=== PATIENT | male | born 1940 | race Caucasian/White ===

== ENCOUNTER 2020-06-25 19:12 | Inpatient (IN) | payer MEDICARE, BC ==
[2020-06-25] MEDS ORDERED: SODIUM CHLORIDE 0.9% 500 ML 500 ML IV STA (19:27)
--- NOTE | 2020-06-25 19:33 | ED ---
General Adult HPI - General Chief complaint: Neuro Symptoms/Deficit Stated complaint: Possible stroke Time Seen by Provider: 06/25/20 19:12 Source: patient, EMS, RN notes reviewed, old records reviewed Mode of arrival: EMS Limitations: no limitations - History of Present Illness Initial comments: This is an 79-year-old male who presents emergency Department stating that about 8:00 last night he started noticing he has some facial droop on the left and some slurred speech. Patient states that has not resolved at this time. Patient denies any weakness or numbness in the arms or legs. Patient denies any headache patient denies any coordination problems. Patient denies any recent fever chills or cough. Patient denies any similar history. Patient states his only medical problem is high blood pressure. Patient denies any chest pain difficulty breathing shortness of breath patient denies any abdominal pain patient denies nausea vomiting diarrhea. - Related Data Home Medications Medication Instructions Recorded Confirmed ALPRAZolam [Xanax] 0.25 mg PO BID PRN 06/25/20 06/25/20 Tamsulosin HCl [Flomax] 0.4 mg PO DAILY 06/25/20 06/25/20 atenoloL [Atenolol] 25 mg PO DAILY 06/25/20 06/25/20 Allergies Allergy/AdvReac Type Severity Reaction Status Date / Time No Known Allergies Allergy Verified 06/25/20 20:44 Review of Systems ROS Statement: Those systems with pertinent positive or pertinent negative responses have been documented in the HPI. ROS Other: All systems not noted in ROS Statement are negative. Past Medical History Past Medical History: Atrial Fibrillation, Hypertension History of Any Multi-Drug Resistant Organisms: None Reported Past Surgical History: Orthopedic Surgery Past Psychological History: No Psychological Hx Reported Smoking Status: Never smoker Past Alcohol Use History: Daily Past Drug Use History: None Reported General Exam - General Exam Comments Initial Comments: GENERAL: Patient is well-developed and well-nourished. Patient is nontoxic and well- hydrated and is in no acute distress. ENT: Neck is soft and supple. No significant lymphadenopathy is noted. Oropharynx is clear. Moist mucous membranes. Neck has full range of motion without eliciting any pain. EYES: The sclera were anicteric and conjunctiva were pink and moist. Extraocular movements were intact and pupils were equal round and reactive to light. Eyelids were unremarkable. PULMONARY: Unlabored respirations. Good breath sounds bilaterally. No audible rales rhonchi or wheezing was noted. CARDIOVASCULAR: There is a regular rate and rhythm without any murmurs gallops or rubs. ABDOMEN: Soft and nontender with normal bowel sounds. SKIN: Skin is clear with no lesions or rashes and otherwise unremarkable. NEUROLOGIC: Patient is alert and oriented x3. Patient has some facial droop on the left side however his forehead is not involved. Patient's motor and sensory are all 4 extremities are equal and has full strength. Cerebellar testing finger to nose is normal bilaterally. MUSCULOSKELETAL: Normal extremities with adequate strength and full range of motion. LYMPHATICS: No significant lymphadenopathy is noted PSYCHIATRIC: Normal psychiatric evaluation. Limitations: no limitations Course Vital Signs 06/25/20 06/25/20 06/25/20 19:15 19:30 19:45 Temperature 99.1 F Pulse Rate 99 85 88 Respiratory 18 18 18 Rate Blood Pressure 155/104 145/88 155/92 O2 Sat by Pulse 99 99 98 Oximetry 06/25/20 20:23 Temperature Pulse Rate 90 Respiratory 17 Rate Blood Pressure 148/93 O2 Sat by Pulse 99 Oximetry Medical Decision Making - Medical Decision Making EKG shows atrial fibrillation at 93 bpm QRS is 74 Q-T intervals 354 QTC is 440. EKG shows no ST segment elevation or depression. Patient's CT shows an area of infarct with no hemorrhage. It is in the distribution of the right middle cerebral artery. CTA shows a a significant proximal right ICA complex plaque stenosis I spoke with the neuro interventional is Dr. Cardenas and he wanted medical management I gave the patient Lipitor and aspirin and I consult to neurology for tomorrow. I spoke with the [facility] agreed to admit the patient to the patient wrote admitting orders. - Lab Data Result diagrams: 06/25/20 19:35 06/25/20 20:31 Lab Results 06/25/20 06/25/20 06/25/20 Range/Units 19:35 19:35 19:35 WBC 4.6 (3.8-10.6) k/uL RBC 4.63 (4.30-5.90) m/uL Hgb 14.3 (13.0-17.5) gm/dL Hct 43.9 (39.0-53.0) % MCV 94.7 (80.0-100.0) fL MCH 30.8 (25.0-35.0) pg MCHC 32.6 (31.0-37.0) g/dL RDW 13.5 (11.5-15.5) % Plt Count 67 L (150-450) k/uL MPV 9.6 Neutrophils % 69 % Lymphocytes % 17 % Monocytes % 11 % Eosinophils % 1 % Basophils % 1 % Neutrophils # 3.1 (1.3-7.7) k/uL Lymphocytes # 0.8 L (1.0-4.8) k/uL Monocytes # 0.5 (0-1.0) k/uL Eosinophils # 0.0 (0-0.7) k/uL Basophils # 0.0 (0-0.2) k/uL PT 10.2 (9.0-12.0) sec INR 0.9 (<1.2) APTT 19.8 L (22.0-30.0) sec Sodium (137-145) mmol/L Potassium (3.5-5.1) mmol/L Chloride (98-107) mmol/L Carbon Dioxide (22-30) mmol/L Anion Gap mmol/L BUN (9-20) mg/dL Creatinine (0.66-1.25) mg/dL Est GFR (CKD-EPI)AfAm (>60 ml/min/1.73 sqM) Est GFR (CKD-EPI)NonAf (>60 ml/min/1.73 sqM) Glucose (74-99) mg/dL POC Glucose (mg/dL) (75-99) mg/dL POC Glu Kier Hand ID Calcium (8.4-10.2) mg/dL Total Bilirubin (0.2-1.3) mg/dL AST (17-59) U/L ALT (4-49) U/L Alkaline Phosphatase (38-126) U/L Troponin I 0.039 H* (0.000-0.034) ng/mL Total Protein (6.3-8.2) g/dL Albumin (3.5-5.0) g/dL 06/25/20 06/25/20 Range/Units 19:53 20:31 WBC (3.8-10.6) k/uL RBC (4.30-5.90) m/uL Hgb (13.0-17.5) gm/dL Hct (39.0-53.0) % MCV (80.0-100.0) fL MCH (25.0-35.0) pg MCHC (31.0-37.0) g/dL RDW (11.5-15.5) % Plt Count (150-450) k/uL MPV Neutrophils % % Lymphocytes % % Monocytes % % Eosinophils % % Basophils % % Neutrophils # (1.3-7.7) k/uL Lymphocytes # (1.0-4.8) k/uL Monocytes # (0-1.0) k/uL Eosinophils # (0-0.7) k/uL Basophils # (0-0.2) k/uL PT (9.0-12.0) sec INR (<1.2) APTT (22.0-30.0) sec Sodium 132 L (137-145) mmol/L Potassium 3.7 (3.5-5.1) mmol/L Chloride 99 (98-107) mmol/L Carbon Dioxide 24 (22-30) mmol/L Anion Gap 9 mmol/L BUN 11 (9-20) mg/dL Creatinine 0.97 (0.66-1.25) mg/dL Est GFR (CKD-EPI)AfAm 85 (>60 ml/min/1.73 sqM) Est GFR (CKD-EPI)NonAf 74 (>60 ml/min/1.73 sqM) Glucose 97 (74-99) mg/dL POC Glucose (mg/dL) 90 (75-99) mg/dL POC Glu Kier Hand ID Maggie Daly Calcium 8.6 (8.4-10.2) mg/dL Total Bilirubin 0.8 (0.2-1.3) mg/dL AST 72 H (17-59) U/L ALT 45 (4-49) U/L Alkaline Phosphatase 97 (38-126) U/L Troponin I (0.000-0.034) ng/mL Total Protein 6.5 (6.3-8.2) g/dL Albumin 3.7 (3.5-5.0) g/dL Critical Care Time Critical Care Time: Yes Total Critical Care Time: 35 Disposition Clinical Impression: Cerebrovascular accident (CVA), A-fib Disposition: ADMITTED IP TO THIS HOSP Referrals: Tez Conley Jr, [Primary Care Provider] - 1-2 days Time of Disposition: 21:15
[2020-06-25 19:45] LABS: Basophils % (A) 1 %; Eosinophils % (A) 1 %; HCT 43.9 % (39.0-53.0); HGB 14.3 gm/dL (13.0-17.5); Lymphocytes # (A) 0.8 k/uL (1.0-4.8); Lymphocytes % (A) 17 %; MCH 30.8 pg (25.0-35.0); MCHC 32.6 g/dL (31.0-37.0); MCV 94.7 fL (80.0-100.0); Mean Platelet Volume 9.6; Monocytes # (A) 0.5 k/uL (0-1.0); Monocytes % (A) 11 %; Neutrophils # (A) 3.1 k/uL (1.3-7.7); Neutrophils % (A) 69 %; RBC 4.63 m/uL (4.30-5.90); RDW 13.5 % (11.5-15.5); WBC 4.6 k/uL (3.8-10.6)
[2020-06-25 19:53] LABS: Platelet Count 67 k/uL (150-450)
[2020-06-25 19:55] LABS: Glucose,Whole Blood 90 mg/dL (75-99)
[2020-06-25 19:59] LABS: INR 0.9 (<1.2); Prothrombin Time 10.2 sec (9.0-12.0)
[2020-06-25 20:01] LABS: Partial Thromboplastin Time 19.8 sec (22.0-30.0)
--- NOTE | 2020-06-25 20:18 | CT ---
EXAMINATION: CT brain wo con for TPA DATE AND TIME: 06/25/2020 7:46 PM CLINICAL INDICATION: PHH; Neuro deficit, acute, stroke suspected TECHNIQUE: Standard departmental protocol; 1069.8 mGy-cm COMPARISON: None. FINDINGS: There is a 4 x 4 x 3 cm acute low attenuation defect in the territory of the right MCA invo lving the lateral right frontal lobe at the level of the frontal horns and third ventricle. This find ing is associated with subtle sulcal effacement, and is compatible with the diagnosis of nonhemorrhag ic acute infarction. There are no other such findings. There is no intracranial hemorrhage. The calvarium is intact. There is no intracranial mass or mass effect. The paranasal sinuses, middle ear cavities, and mastoid sinus air cells are clear. The orbits are unremarkable. IMPRESSION: 4 cm right MCA territory nonhemorrhagic infarction.
--- NOTE | 2020-06-25 20:25 | CT ---
EXAMINATION TYPE: CT angio head neck contrast and with 3-D reconstruction renderings DATE OF EXAM: 06/25/2020 HISTORY: Neuro deficits, LT side facial drooping COMPARISON: CT brain without contrast 06/26/2019 CT DLP: 570.5 mGycm. Automated Exposure Control for Dose Reduction was Utilized. TECHNIQUE: CTA scan of the neck is performed with IV Contrast, patient injected with 65 mL of Isovue 370, axial images are obtained, coronal and sagittal reformatted images are reviewed. Three-D recons tructed images are created on an independent workstation and reviewed. FINDINGS: Carotid/Vascular Structures: The right ICA origin shows an adequately significant complex plaque shor t segment stenosis, associated with approximately 75% luminal diameter narrowing. The remainder of th e right carotid system is widely patent. The left carotid system is widely patent. The intracranial a nterior circulation is patent, without cutoff or intraluminal filling defect. The right and left vertebral artery systems are widely patent. The intracranial posterior circulation is patent. The dural venous sinuses and venous structures of the neck are unremarkable. The extravascular structures of the head and neck are negative for incidental findings, save the 4 cm right MCA territory infarction described on the CT brain without contrast. IMPRESSION: 1. 4 cm right MCA territory nonhemorrhagic infarction 2. Hemodynamically significant proximal right ICA complex plaque stenosis.
[2020-06-25 20:45] LABS: Albumin 3.7 g/dL (3.5-5.0); Calcium 8.6 mg/dL (8.4-10.2); Potassium 3.7 mmol/L (3.5-5.1); Total Bilirubin 0.8 mg/dL (0.2-1.3); Total Protein 6.5 g/dL (6.3-8.2)
[2020-06-25] MEDS ORDERED: ASPIRIN 325 MG TAB PO STA (21:08)
[2020-06-25] MEDS ORDERED: ATORVASTATIN 80 MG TAB PO STA (21:13)
--- NOTE | 2020-06-25 21:14 | XR ---
EXAMINATION: XR chest 2V DATE AND TIME: 06/25/2020 8:17 PM CLINICAL INDICATION: PHH; altered mental status TECHNIQUE: Departmental protocol COMPARISON: The FINDINGS: The overlying soft tissues are prominent. In the right suprahilar position and in the retrocardiac left lower lobe there are ill-defined added opacity suspicious for multifocal bronchopneumonia. There is no giovanni pulmonary edema. The pleural spaces are negative. The cardiac silhouette is moderately enlarged. The skeletal structures and soft tissues are negative for acute findings. IMPRESSION: Evidence of multifocal bronchopneumonia.
[2020-06-26] MEDS ORDERED: HEPARIN SODIUM 1,000 UN/ML (10ML VL) IV PRN (07:57)
[2020-06-26] MEDS ORDERED: HEPARIN SODIUM 1,000 UN/ML (10ML VL) IV ONE (07:57)
[2020-06-26] MEDS ORDERED: HEPARIN SOD,PORK IN 0.45% NACL 25,000 UNIT in 0.45% NACL 1 250ML.BAG IV SCH (08:00)
[2020-06-26 08:26] LABS: Basophils % (A) 0 %; Eosinophils % (A) 1 %; HCT 45.3 % (39.0-53.0); HGB 14.2 gm/dL (13.0-17.5); Lymphocytes # (A) 0.7 k/uL (1.0-4.8); Lymphocytes % (A) 15 %; MCH 30.2 pg (25.0-35.0); MCHC 31.4 g/dL (31.0-37.0); MCV 96.1 fL (80.0-100.0); Monocytes # (A) 0.5 k/uL (0-1.0); Monocytes % (A) 11 %; Neutrophils # (A) 3.1 k/uL (1.3-7.7); Neutrophils % (A) 70 %; RBC 4.71 m/uL (4.30-5.90); RDW 13.6 % (11.5-15.5); WBC 4.5 k/uL (3.8-10.6)
[2020-06-26 08:37] LABS: Platelet Count 164 k/uL (150-450)
[2020-06-26 08:41] LABS: Cholesterol 178 mg/dL (<200); HDL Cholesterol 78 mg/dL (40-60); LDL Cholesterol,Calculated 90 mg/dL (0-99); Triglycerides 48 mg/dL (<150)
[2020-06-26 08:41] LABS: Prothrombin Time 10.4 sec (9.0-12.0)
[2020-06-26] MEDS ORDERED: ASPIRIN 325 MG TAB PO SCH (09:00)
[2020-06-26] MEDS: ASPIRIN 81 MG PO SCH (09:06)
[2020-06-26] MEDS: ATORVASTATIN 80 MG TAB PO SCH (09:06)
[2020-06-26] MEDS: METOPROLOL TARTRATE 25 MG TAB PO SCH ×2 (09:06→20:06)
--- NOTE | 2020-06-26 09:32 | P.CRDCN ---
History of Present Illness History of present illness: HISTORY OF PRESENTING ILLNESS This is a pleasant 79-year-old male past medical history significant for atrial fibrillation (diagnosed at age 21, never been on anticoagulation) and hypertension. 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 We have been asked to see in consultation for atrial fibrillation. Patient is seen and examined at bedside in no acute distress. States yesterday he noticed his speech was slurred and had a left sided facial droop and presented to the emergency department. CT brain revealed right MCA territory nonhemorrhagic infarction. He denies chest pain, palpitations, shortness of breath, lower extremity edema, fatigue, weakness, lightheadedness, syncope. Patient denies history of Diabetes, Stroke, [place], Hyperlipidemia. Current cardiac medications include atenolol 25mg daily. He denies smoking. He does drink alcohol daily- drinks TheraCoat beers 2 per day. He denies illicit drug use. Laboratory data reviewed, Covid-19 positive, troponin mildly elevated 0.03, sodium 132, potassium 3.7, serum creatinine 0.7, AST 72, PLT 45, triglycerides 48, cholesterol 170, LDL 90, H 78, WBC 4.5, hemoglobin 14.2, platelets 164 , Vital signs blood pressure 150/86, heart rate 95, afebrile, oxygen saturation is 99% on 2 L nasal cannula. DIAGNOSTICS EKG reveals atrial fibrillation HR 90s. No prior EKGs to compare Telemetry tracings indicate atrial fibrillation HR 80-90s Brain CT- 4cm right MCA Territory nonhemorrhagic infarction CT angio head and neck- Hemodynamically significant proximal right ICA complex plaque stenosis Chest xray Multifocal bronchopneumonia. No giovanni pulmonary edema. REVIEW OF SYSTEMS At the time of my exam: CONSTITUTIONAL: Denies fever or chills. CARDIOVASCULAR: Denies chest pain, shortness of breath, orthopnea, PND or palpitations. RESPIRATORY: Denies cough. GASTROINTESTINAL: Denies abdominal pain, diarrhea, constipation, nausea or vomiting. MUSCULOSKELETAL: Denies myalgias. NEUROLOGIC: +right sided facial droop +slurred speech Denies numbness, tingling, headacbe or weakness. ENDOCRINE: Denies fatigue, weight change, polydipsia or polyurina. GENITOURINARY: Denies burning, hematuria or urgency with micturation. HEMATOLOGIC: Denies history of anemia or bleeding. PHYSICAL EXAMINATION CONSTITUTIONAL: No apparent distress. HEENT: Head is normocephalic. Pupils are equal, round. Sclerae anicteric. Mucous membranes of the mouth are moist. No JVD. No carotid bruit. CHEST EXAMINATION: Lungs are clear to auscultation. No chest wall tenderness is noted on palpation or with deep breathing. HEART EXAMINATION: Irregular rate and rhythm. S1, S2 heard. No murmurs, gallops or rub. ABDOMEN: Soft, nontender. Positive bowel sounds. EXTREMITIES: 2+ peripheral pulses, no lower extremity edema and no calf tenderness. SKIN: NEUROLOGIC EXAMINATION: Patient is awake, alert and oriented x3. 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 Nurse Practitioner note has been reviewed, I agree with a documented findings and plan of care. Patient was seen and examined. Past Medical History Past Medical History: Atrial Fibrillation, Hypertension History of Any Multi-Drug Resistant Organisms: None Reported Past Surgical History: Orthopedic Surgery Additional Past Surgical History / Comment(s): eye procedure Past Anesthesia/Blood Transfusion Reactions: No Reported Reaction Past Psychological History: No Psychological Hx Reported Smoking Status: Never smoker Past Alcohol Use History: Daily Past Drug Use History: None Reported - Past Family History Mother Family Medical History: Diabetes Mellitus Medications and Allergies Home Medications Medication Instructions Recorded Confirmed Type ALPRAZolam [Xanax] 0.25 mg PO BID PRN 06/25/20 06/25/20 History Tamsulosin HCl [Flomax] 0.4 mg PO DAILY 06/25/20 06/25/20 History atenoloL [Atenolol] 25 mg PO DAILY 06/25/20 06/25/20 History Allergies Allergy/AdvReac Type Severity Reaction Status Date / Time No Known Allergies Allergy Verified 06/25/20 20:44 Physical Exam Vitals: Vital Signs Temp Pulse Pulse Resp BP BP Pulse Ox 06/26/20 04:00 98.4 F 95 18 150/86 99 06/26/20 00:00 98.3 F 85 18 156/76 99 06/25/20 23:05 98.7 F 93 18 167/95 99 06/25/20 21:55 90 18 131/87 98 06/25/20 20:23 90 17 148/93 99 06/25/20 19:45 88 18 155/92 98 06/25/20 19:30 85 18 145/88 99 06/25/20 19:15 99.1 F 99 18 155/104 99 Intake and Output 06/25/20 06/26/20 06/26/20 22:59 06:59 14:59 Output Total 600 Balance -600 Output: Urine 600 Other: Voiding Method Urinal # Voids 1 Weight 83.915 kg 94.5 kg Results 06/26/20 08:02 06/25/20 20:31 Cardiac Enzymes 06/25/20 06/25/20 Range/Units 19:35 20:31 AST 72 H (17-59) U/L Troponin I 0.039 H* (0.000-0.034) ng/mL Coagulation 06/25/20 Range/Units 19:35 PT 10.2 (9.0-12.0) sec APTT 19.8 L (22.0-30.0) sec CBC 06/25/20 Range/Units 19:35 WBC 4.6 (3.8-10.6) k/uL RBC 4.63 (4.30-5.90) m/uL Hgb 14.3 (13.0-17.5) gm/dL Hct 43.9 (39.0-53.0) % Plt Count 67 L (150-450) k/uL Comprehensive Metabolic Panel 06/25/20 Range/Units 20:31 Sodium 132 L (137-145) mmol/L Potassium 3.7 (3.5-5.1) mmol/L Chloride 99 (98-107) mmol/L Carbon Dioxide 24 (22-30) mmol/L BUN 11 (9-20) mg/dL Creatinine 0.97 (0.66-1.25) mg/dL Glucose 97 (74-99) mg/dL Calcium 8.6 (8.4-10.2) mg/dL AST 72 H (17-59) U/L ALT 45 (4-49) U/L Alkaline Phosphatase 97 (38-126) U/L Total Protein 6.5 (6.3-8.2) g/dL Albumin 3.7 (3.5-5.0) g/dL Current Medications Generic Name Dose Route Start Last Admin Trade Name Freq PRN Reason Stop Dose Admin Aspirin 325 mg 06/26/20 09:00 Aspirin 325 Mg Tab PO DAILY NIMA Atorvastatin Calcium 80 mg 06/26/20 09:00 Atorvastatin 80 Mg Tab PO DAILY NIMA Intake and Output 06/25/20 06/26/20 06/26/20 22:59 06:59 14:59 Output Total 600 Balance -600 Output: Urine 600 Other: Voiding Method Urinal # Voids 1 Weight 83.915 kg 94.5 kg 06/25/20 19:35 06/25/20 20:31
[2020-06-26] MEDS ORDERED: CLOPIDOGREL 75 MG TAB PO STA (09:48)
--- NOTE | 2020-06-26 10:55 | ECHOF ---
Referral Reason:atrial fibrillation, no recent echo MEASUREMENTS -------- HEIGHT: 167.6 cm WEIGHT: 83.9 kg BP: 150/86 RVIDd: 2.7 cm (< 3.3) IVSd: 1.4 cm (0.6 - 1.1) LVIDd: 5.1 cm (3.9 - 5.3) LVPWd: 1.4 cm (0.6 - 1.1) IVSs: 2.1 cm LVIDs: 2.6 cm LVPWs: 1.8 cm LA Diam: 4.6 cm (2.7 - 3.8) LAESV Index (A-L): 55.81 ml/m Ao Diam: 3.4 cm (2.0 - 3.7) AV Cusp: 2.0 cm (1.5 - 2.6) MV EXCURSION: 18.069 mm (> 18.000) MV EF SLOPE: 166 mm/s (70 - 150) EPSS: 0.4 cm RAP: 5.00 mmHg RVSP: 34.93 mmHg FINDINGS -------- Atrial fibrillation. This was a technically adequate study. The left ventricular size is normal. There is moderate concentric left ventricular hypertrophy. O verall left ventricular systolic function is low-normal with, an EF between 50 - 55 %. The right ventricle is normal in size. LA is severely dilated >40 ml/m2 The right atrium is normal in size. Interatrial and interventricular septum intact. There is mild aortic valve sclerosis. There is mild aortic regurgitation. Mild mitral annular calcification present. [id number] mitral regurgitation is present. Mild tricuspid regurgitation present. There is mild pulmonary hypertension. The right ventricular systolic pressure, as measured by Doppler, is 34.93mmHg. The pulmonic valve was not well visualized. The aortic root size is normal. Normal inferior vena cava with normal inspiratory collapse consistent with estimated right atrial pre ssure of 5 mmHg. There is no pericardial effusion. CONCLUSIONS -------- 1. The left ventricular size is normal. 2. There is moderate concentric left ventricular hypertrophy. 3. Overall left ventricular systolic function is low-normal with, an EF between 50 - 55 %. 4. LA is severely dilated >40 ml/m2 5. There is mild aortic valve sclerosis. 6. There is mild aortic regurgitation. 7. Mild mitral annular calcification present. 8. [id number] mitral regurgitation is present. 9. Mild tricuspid regurgitation present. 10. There is mild pulmonary hypertension. 11. The right ventricular systolic pressure, as measured by Doppler, is 34.93mmHg. 12. There is no pericardial effusion. FISH LIVER SORTER: Renée Maciel RDCS
--- NOTE | 2020-06-26 10:58 | P.CNNES ---
History of Present Illness Consult date: 06/26/20 Requesting physician: John Mccracken Reason for Consult: Left facial droop and slurred speech concern for stroke History of Present Illness: This is an 79-year-old gentleman with medical history of atrial fibrillation (no t on any medication) and hypertension that presented to the emergency department on 9 06/25/2020 for left facial droop and slurring the speech. She stated that the symptoms the started on 06/25/2020 around 8 PM he thinks. He said he was drinking out of a cup and all of a sudden that was the drooling out of the left side of the mouth and he said that he was having the slurring the speech when he was talking. Since his the hospital he feels that the there is improvement but not back to baseline. He denies any weakness of any upper or lower extremity, numbness, visual disturbance, difficulty swallowing. Denies of any headache. He denies of any stroke or TIA symptoms in the past that. He did acknowledge that he has a history of atrial fibrillation for years and he was notified by his primary care to be on anticoagulation but he refused because of the bleeding risk. He denies of tobacco use. He socially drinks alcohol. CT of the head is reported as 4 cm right MCA territory nonhemorrhagic infarction. I reviewed imaging and seems acute to subacute. CT angiography of the head and neck was reported as 4 cm right MCA territory nonhemorrhagic infarction. Hemodynamically significant proximal right ICA complex plaque stenosis. In the body of the report it is mentioned as the was approximately 75% luminal diameter and narrowing. EKG is reported as Atrial fibrillation. Abnormal EKG. The plateletes count is 67K and repeat is 164. Lipid panel: T, cholestrol 178, LDL 90 and HDL is 78. Troponin is 0.039 Coronavirus is detected. Review of Systems Review of system: The 12 point system was reviewed and apparent positive and negative per HPI. Past Medical History Past Medical History: Atrial Fibrillation, Hypertension History of Any Multi-Drug Resistant Organisms: None Reported Past Surgical History: Orthopedic Surgery Additional Past Surgical History / Comment(s): eye procedure Past Anesthesia/Blood Transfusion Reactions: No Reported Reaction Past Psychological History: No Psychological Hx Reported Smoking Status: Never smoker Past Alcohol Use History: Daily Past Drug Use History: None Reported - Past Family History Mother Family Medical History: Diabetes Mellitus Medications and Allergies Home Medications Medication Instructions Recorded Confirmed Type ALPRAZolam [Xanax] 0.25 mg PO BID PRN 06/25/20 06/25/20 History Tamsulosin HCl [Flomax] 0.4 mg PO DAILY 06/25/20 06/25/20 History atenoloL [Atenolol] 25 mg PO DAILY 06/25/20 06/25/20 History Allergies Allergy/AdvReac Type Severity Reaction Status Date / Time No Known Allergies Allergy Verified 06/25/20 20:44 Physical Examination - Vital Signs Vital Signs: Vital Signs Temp Pulse Pulse Resp BP BP Pulse Ox 06/26/20 04:00 98.4 F 95 18 150/86 99 06/26/20 00:00 98.3 F 85 18 156/76 99 06/25/20 23:05 98.7 F 93 18 167/95 99 06/25/20 21:55 90 18 131/87 98 06/25/20 20:23 90 17 148/93 99 06/25/20 19:45 88 18 155/92 98 06/25/20 19:30 85 18 145/88 99 06/25/20 19:15 99.1 F 99 18 155/104 99 Intake and Output 06/25/20 06/26/20 06/26/20 22:59 06:59 14:59 Output Total 600 Balance -600 Output: Urine 600 Other: Voiding Method Urinal # Voids 1 Weight 83.915 kg 94.5 kg GENERAL: The patient is lying in bed and is not in acute distress. CHEST: The heart rate is iregular rate rhythm. No murmurs to auscultation. Right carotid bruit. LUNG: Clear to auscultation bilaterally no wheezing noted throughout. Not labored breathing. ABDOMEN/GI: Bowel sounds present in all 4 quadrants. No tenderness to palpation throughout. NEUROLOGICAL: Higher mental function: The patient is awake, alert, oriented to self, place and time. Patient is following commands. No aphasia and no neglect. Cranial nerves: The pupils are round, equal and reactive to light and accommodation. Visual cutler are full to confrontation throughout. Extraocular movement is intact no nystagmus is noted. Facial sensation is normal to touch throughout. The facial strength is mild left facial weakness. Hearing is mildly decreased bilaterally to hand rub. Tongue is midline and moved [id number] without any difficulty. Minimal dysarthria at few instances is noted. Shoulder shrug is normal bilaterally. Motor: Gait is deferred. The strength is 5 over 5 throughout. Normal tone and bulk. Cerebellum: Normal finger to nose heel to aguirre bilaterally. Sensation: Sensation is normal to touch throughout. Reflexes (right/left): 2+ throughout Plantars are downgoing bilaterally. 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 Etiology is Embolic (Artery to artery from symptomatic right ICA stenois. Another possibility is cardioembolic (since has atrial fibrillation). Symtomatic RIght Internal carotid artery stenosis (75%) Positive COVID-19 pneumonia Thrombocytopenia--improving Chronic history Atrial fibrillation (refused to be on anticoagulation in the past) Hypertension Plan: * I will not get MRI of the brain since the patient is claustrophobic as well as is Dr. change the management. We'll get a repeat CT of the head for tomorrow to see if there is any evolution to the stroke. * I consulted vascular surgeon team regarding this symptom carotid stenosis. * The patient was given aspirin 325mg and Lipitor 80mg once in the ED. Patient was started on aspirin 81 mg and I will start the patient on Plavix 75mg daily for now. I did not load the patient with Plavix since the patient has a th rombocytopenia. Continue Lipitor 80mg daily. * Cardiology ordered heparin drip. I notified the nurse to speak with cardiology regarding the avoiding any heparin drip to avoid any hemorrhagic conversion of the subacute ischemic stroke. We'll hold off any anticoagulation for 3-4 more days for now. If cardiology feels the benefit outweighs the risk then avoid any boluses, and to keep the PTT between 45 and 60. * 2-D echo was ordered and is pending and ordered carotid duplex * Ordered every 4 hours neuro checks and that continues cardiac monitoring. * Ordered TSH level and Hemoglobin A1c. * PT, OT and RN RADIOLOGY are consulted. * Lipid panel: T, cholestrol 178, LDL 90 and HDL is 78. LDL goal in stroke is <70. * Cardiology is on board. * The patient kept on asking that he wants to go home today. I notified him that I don't feel comfortable of him being discharged today and if he wants to leave has to be Against Medical Advice. Upon discharge the patient needs to follow-up with neurologist within 1-2 weeks. The plan is discussed with the patient's nurse Thank you for the consultation. Ranulfo Benton MD Neuro-Hospitalist Time with Patient: Greater than 30
[2020-06-26] MEDS: PANTOPRAZOLE 40 MG/10 ML VIAL IVP SCH (12:38)
[2020-06-26] MEDS: ALPRAZolam 0.25 MG TAB PO PRN ×2 (12:38→18:42)
--- NOTE | 2020-06-26 12:43 | P.CNPUL ---
History of Present Illness Consult date: 06/26/20 Chief complaint: Acute CVA History of present illness: 79-year-old male patient CVA with the patient developed sudden onset left facial droop and slurred speech and he presented to the emergency department accordingly. His symptoms started yesterday at around 8 PM. He did have some improvement but not completely back to his baseline. Denied having any other weaknesses. He does have history of atrial fibrillation. He has also history of hypertension. CT of the head showed a 3 cm right MCA distribution nonhemorrhagic infarction. CT angiogram of the brain showed a 4 cm right MCA distribution nonhemorrhagic infarct. There was also a hemodynamically significant proximal right ICA complex stenosis. EKG was showing atrial fibrillation. His platelet count was 67,000 and the repeat was 164. Troponin was at 0.039. He was also positive COVID-19 by PCR. The patient is currently on 2 L of oxygen. On room air oxygen and the pulse ox was 95%. Chest x-ray showed cardiomegaly. He does not have any respiratory symptoms. He does have lymphopenia and his blood work. Inflammatory markers have not been checked. Review of Systems Constitutional: Denies chills, Denies fever Eyes: denies as per HPI, denies blurred vision, denies bulging eye, denies decreased vision, denies diplopia, denies discharge, denies dry eye, denies irritation, denies itching, denies pain, denies photophobia, denies loss of peripheral vision, denies loss of vision, denies tunnel vision/blind spots Ears: deny: decreased hearing, ear discharge, earache, tinnitus Ears, nose, mouth and throat: Denies headache, Denies sore throat Breasts: absent: as per HPI, gynecomastia Cardiovascular: Denies chest pain, Denies shortness of breath Respiratory: Denies cough Genitourinary: Reports as per HPI Musculoskeletal: Reports as per HPI Musculoskeletal: absent: ankle pain, ankle stiffness, ankle swelling, as per HPI, elbow pain, elbow stiffness, elbow swelling, foot pain, foot stiffness, foot swelling, hand pain, hand stiffness, hand swelling, hip pain, hip stiffness, hip swelling, knee pain, knee stiffness, knee swelling, shoulder pain, shoulder stiffness, shoulder swelling, wrist pain, wrist stiffness, wrist swelling Integumentary: Reports as per HPI Neurological: Reports as per HPI (Left-sided facial droop and aphasia), Reports aphasia Psychiatric: Reports as per HPI Endocrine: Reports as per HPI Hematologic/Lymphatic: Reports as per HPI, Reports easy bleeding Past Medical History Past Medical History: Atrial Fibrillation, Hypertension Additional Past Medical History / Comment(s): right carotid artery disease and chronic atrial fibrillation History of Any Multi-Drug Resistant Organisms: None Reported Past Surgical History: Orthopedic Surgery Additional Past Surgical History / Comment(s): eye procedure Past Anesthesia/Blood Transfusion Reactions: No Reported Reaction Past Psychological History: No Psychological Hx Reported Smoking Status: Never smoker Past Alcohol Use History: Daily Past Drug Use History: None Reported - Past Family History Mother Family Medical History: Diabetes Mellitus Medications and Allergies Home Medications Medication Instructions Recorded Confirmed Type ALPRAZolam [Xanax] 0.25 mg PO BID PRN 06/25/20 06/25/20 History Tamsulosin HCl [Flomax] 0.4 mg PO DAILY 06/25/20 06/25/20 History atenoloL [Atenolol] 25 mg PO DAILY 06/25/20 06/25/20 History Allergies Allergy/AdvReac Type Severity Reaction Status Date / Time No Known Allergies Allergy Verified 06/25/20 20:44 Physical Exam Vitals: Vital Signs Temp Pulse Pulse Resp BP BP Pulse Ox 06/26/20 08:00 98.2 F 89 18 141/86 95 06/26/20 04:00 98.4 F 95 18 150/86 99 06/26/20 00:00 98.3 F 85 18 156/76 99 06/25/20 23:05 98.7 F 93 18 167/95 99 06/25/20 21:55 90 18 131/87 98 06/25/20 20:23 90 17 148/93 99 06/25/20 19:45 88 18 155/92 98 06/25/20 19:30 85 18 145/88 99 06/25/20 19:15 99.1 F 99 18 155/104 99 Intake and Output 06/25/20 06/26/20 06/26/20 22:59 06:59 14:59 Output Total 600 Balance -600 Output: Urine 600 Other: Voiding Method Urinal Urinal # Voids 1 Weight 83.915 kg 94.5 kg CONSTITUTIONAL: No apparent distress. HEENT: Head is normocephalic. Pupils are equal, round. Sclerae anicteric. Mucous membranes of the mouth are moist. No JVD. No carotid bruit. CHEST EXAMINATION: Lungs are clear to auscultation. No chest wall tenderness is noted on palpation or with deep breathing. HEART EXAMINATION: Irregular rate and rhythm. S1, S2 heard. No murmurs, gallops or rub. ABDOMEN: Soft, nontender. Positive bowel sounds. EXTREMITIES: 2+ peripheral pulses, no lower extremity edema and no calf tenderness. SKIN: NEUROLOGIC EXAMINATION: Patient is awake, alert and oriented x3. Results - Laboratory Findings CBC and BMP: 06/26/20 08:02 06/25/20 20:31 PT/INR, D-dimer PT 10.4 sec (9.0-12.0) 06/26/20 08:02 INR 1.0 (<1.2) 06/26/20 08:02 Abnormal lab findings: Abnormal Labs 06/25/20 06/25/20 06/25/20 19:35 19:35 19:35 Plt Count 67 L Lymphocytes # 0.8 L APTT 19.8 L Sodium AST Troponin I 0.039 H* HDL Cholesterol Coronavirus (PCR) 06/25/20 06/25/20 06/26/20 20:31 21:29 07:54 Plt Count Lymphocytes # APTT Sodium 132 L AST 72 H Troponin I HDL Cholesterol 78 H Coronavirus (PCR) Detected A 06/26/20 08:02 Plt Count Lymphocytes # 0.7 L APTT Sodium AST Troponin I HDL Cholesterol Coronavirus (PCR) - Diagnostic Findings Chest x-ray: image reviewed Assessment and Plan Plan: 1 acute CVA involving the right MCA distribution. The patient has a critical stenosis of the right ICA. Patient presenting with left facial weakness and slurred speech last aphasia. 2 right carotid artery stenosis 3 Chronic atrial fibrillation 4 COVID 19 positive, pneumonia is doubtful 5 thrombocytopenia, improving 6 lymphopenia related to COVID-19. 7 hypertension 8 BPH Plan Management of CVA per neurology echocardiogram Carotid Doppler Monitor symptoms for COVID-19. Obviously patient is infected and I do not see any systemic symptoms or any changes to support diagnosis of pneumonia. Chest x-ray was reviewed safety shows cardiomegaly. The patient is on room air oxygen. We'll continue As needed
--- NOTE | 2020-06-26 13:04 | P.GSCN ---
History of Present Illness Consult date: 06/26/20 Reason for Consult: Symptomatic right ICA stenosis Requesting physician: Ranulfo Benton History of present illness: A pleasant 79-year-old male came to the emergency department yesterday for complaints of left-sided facial drooping and speech difficulty that began 2 days ago. He has a past medical history of atrial fibrillation diagnosed at age 21, not on any current medication, and hypertension. The patient denies being a smoker. He does drink at least 2 beers daily. He states he is still having some difficulty with his speech was slurring some words. He denied any vision loss, upper or lower extremity weakness, difficulty swallowing, or difficulty walking. Continues to deny any focal deficits other than some difficulty with speech and slight facial droop. He has been seen by neurology and cardiology. We have been consulted for carotid stenosis on CT angiogram of the neck showing hemodynamically significant proximal right ICA complex plaque stenosis. There is approximately 75% luminal diameter narrowing. It also showed a 4 cm right MCA territory nonhemorrhagic hemorrhagic infarction. Review of Systems A 14 point review systems was completed all pertinent positives and negatives as stated in the HPI. Past Medical History Past Medical History: Atrial Fibrillation, Hypertension History of Any Multi-Drug Resistant Organisms: None Reported Past Surgical History: Orthopedic Surgery Additional Past Surgical History / Comment(s): eye procedure Past Anesthesia/Blood Transfusion Reactions: No Reported Reaction Past Psychological History: No Psychological Hx Reported Smoking Status: Never smoker Past Alcohol Use History: Daily Past Drug Use History: None Reported - Past Family History Mother Family Medical History: Diabetes Mellitus Medications and Allergies Home Medications Medication Instructions Recorded Confirmed Type ALPRAZolam [Xanax] 0.25 mg PO BID PRN 06/25/20 06/25/20 History Tamsulosin HCl [Flomax] 0.4 mg PO DAILY 06/25/20 06/25/20 History atenoloL [Atenolol] 25 mg PO DAILY 06/25/20 06/25/20 History Allergies Allergy/AdvReac Type Severity Reaction Status Date / Time No Known Allergies Allergy Verified 06/25/20 20:44 Surgical - Exam Vital Signs Temp Pulse Resp BP Pulse Ox 99.1 F 99 18 155/104 99 06/25/20 19:15 06/25/20 19:15 06/25/20 19:15 06/25/20 19:15 06/25/20 19:15 General appearance: The patient is alert, oriented, in no acute distress. HET: Head is normocephalic and atraumatic. Pupils are equal and reactive. Neck: Supple without lymphadenopathy. Trachea midline. No audible carotid bruit. Heart: S1 S2. Irregular rate and rhythm. Lungs: Clear to auscultation Abdomen: Soft, nontender, nondistended. Extremities: Normal skin color and turgor. No cyanosis, rash, ulceration, clubbing, or edema. Radial and pedal pulses are 2/4 bilaterally. Neurological: Patient with slight facial droop with smiling, tongue protrudes midline. Speech seems fluent and appropriate. Patient answers questions appropriately. Strength and sensation are grossly intact. Results - Labs 06/26/20 08:02 06/25/20 20:31 Abnormal Lab Results - Last 24 Hours (Table) 06/25/20 06/25/20 06/25/20 Range/Units 19:35 19:35 19:35 Plt Count 67 L (150-450) k/uL Lymphocytes # 0.8 L (1.0-4.8) k/uL APTT 19.8 L (22.0-30.0) sec Sodium (137-145) mmol/L AST (17-59) U/L Troponin I 0.039 H* (0.000-0.034) ng/mL HDL Cholesterol (40-60) mg/dL Coronavirus (PCR) (Not Detectd) 06/25/20 06/25/20 06/26/20 Range/Units 20:31 21:29 07:54 Plt Count (150-450) k/uL Lymphocytes # (1.0-4.8) k/uL APTT (22.0-30.0) sec Sodium 132 L (137-145) mmol/L AST 72 H (17-59) U/L Troponin I (0.000-0.034) ng/mL HDL Cholesterol 78 H (40-60) mg/dL Coronavirus (PCR) Detected A (Not Detectd) 06/26/20 Range/Units 08:02 Plt Count (150-450) k/uL Lymphocytes # 0.7 L (1.0-4.8) k/uL APTT (22.0-30.0) sec Sodium (137-145) mmol/L AST (17-59) U/L Troponin I (0.000-0.034) ng/mL HDL Cholesterol (40-60) mg/dL Coronavirus (PCR) (Not Detectd) Diabetes panel 06/25/20 06/26/20 Range/Units 20:31 07:54 Sodium 132 L (137-145) mmol/L Potassium 3.7 (3.5-5.1) mmol/L Chloride 99 (98-107) mmol/L Carbon Dioxide 24 (22-30) mmol/L BUN 11 (9-20) mg/dL Creatinine 0.97 (0.66-1.25) mg/dL Glucose 97 (74-99) mg/dL Calcium 8.6 (8.4-10.2) mg/dL AST 72 H (17-59) U/L ALT 45 (4-49) U/L Alkaline Phosphatase 97 (38-126) U/L Total Protein 6.5 (6.3-8.2) g/dL Albumin 3.7 (3.5-5.0) g/dL Triglycerides 48 (<150) mg/dL HDL Cholesterol 78 H (40-60) mg/dL Calcium panel 06/25/20 Range/Units 20:31 Calcium 8.6 (8.4-10.2) mg/dL Albumin 3.7 (3.5-5.0) g/dL Pituitary panel 06/25/20 Range/Units 20:31 Sodium 132 L (137-145) mmol/L Potassium 3.7 (3.5-5.1) mmol/L Chloride 99 (98-107) mmol/L Carbon Dioxide 24 (22-30) mmol/L BUN 11 (9-20) mg/dL Creatinine 0.97 (0.66-1.25) mg/dL Glucose 97 (74-99) mg/dL Calcium 8.6 (8.4-10.2) mg/dL Adrenal panel 06/25/20 Range/Units 20:31 Sodium 132 L (137-145) mmol/L Potassium 3.7 (3.5-5.1) mmol/L Chloride 99 (98-107) mmol/L Carbon Dioxide 24 (22-30) mmol/L BUN 11 (9-20) mg/dL Creatinine 0.97 (0.66-1.25) mg/dL Glucose 97 (74-99) mg/dL Calcium 8.6 (8.4-10.2) mg/dL Total Bilirubin 0.8 (0.2-1.3) mg/dL AST 72 H (17-59) U/L ALT 45 (4-49) U/L Alkaline Phosphatase 97 (38-126) U/L Total Protein 6.5 (6.3-8.2) g/dL Albumin 3.7 (3.5-5.0) g/dL - Imaging Additional studies: CT angiogram of head and neck shows hemodynamically significant proximal right ICA complex plaque stenosis. There is approximately 75% luminal diameter narrowing. It also showed a 4 cm right MCA territory nonhemorrhagic hemorrhagic infarction. Brain CT: 4 cm right MCA territory nonhemorrhagic infarction Echocardiogram: Left ventricular size normal, moderate concentric left ventricular hypertrophy, EF between 50 and 55%, only is severely dilated greater than 40 mLM2, mild aortic valve sclerosis, mild aortic regurgitation, mild to moderate mitral regurgitation, mild tricuspid regurgitation, mild pulmonary hypertension, no pericardial effusion. Assessment and Plan Assessment: 1. Right internal artery carotid stenosis 2. 4 cm right MCA territory nonhemorrhagic infarction 3. Left facial droop and slurring of speech 4. Chronic history of Atrial fibrillation, was not on anticoagulation 5. Positive Covid-19 pneumonia Plan: 1. Supportive and symptomatic care 2. Continue Aspirin, Plavix, and statin 4. CT angiogram and CT of brain reviewed 5. Carotid ultrasound ordered, pending results 6. Appreciate recommendations from neurology Thank you For this consultation, further recommendations to follow The impression and plan of care has been dictated as directed. Dr. Baig I performed a history and examination of this patient, discussed the same with the dictator. I agree with the dictator's note ,documented as a scribe. Any additional findings or plans will be noted.
--- NOTE | 2020-06-26 13:29 | P.HPIM ---
History of Present Illness H&P Date: 06/26/20 This is an 79-year-old gentleman with past medical history of atrial fibrillation-not on anticoagulation, hypertension, daily alcohol use presented to the ER with complaints of left facial droop, slurred speech, that occurred yesterday around 1999 on without complete resolution. Reports symptoms occurred spontaneously while drinking out of a cup.Denies weakness or loss of sensation in upper or lower extremities. Denies lightheadedness dizziness or focal deficits. Denies cough ,congestion or fevers. Denies chest pain, palpitations or shortness of breath. Denies nausea vomiting or diarrhea. Denies swallowing difficulty. On admission maintained O2 sats in the high 90s on room air, currently requiring 2 L nasal cannula to maintain O2 sats in the 90s. T-max 99.[address] reported a 4 mm right MCA territory nonhemorrhagic infarction involving the left lateral right frontal lobe at the level of the frontal horns and third ventricle. CT angiography of the head and neck was reported as 4 cm right MCA territory nonhemorrhagic infarction. Hemodynamically significant proximal right ICA complex plaque stenosis, 75%. EKG reporting atrial fibrillation, controlled ventricular rate,Troponin 0.039 .echo reporting a normal LV function, EF 50-55%, severely dilated LA, mild to moderate mitral regurgitation, pulmonary hypertension. Patient received Lipitor and aspirin per ERs consult with neuro interventionalist. Coronavirus detected. Chest x-ray reporting cardiomegaly, no giovanni pulmonary edema, pleural spaces negative, possible multifocal bronchopneumoniano clinical presentation .Triglycerides 48, cholesterol 178, LDL 90, HDL 78. TSH 2.7. Hematology, coagulation panels unremarkable with the exception of initial platelets of 67, now 164, lymphocytes 0.8. Chemistry panel unremarkable with the exception of sodium 132 and mildly increased AST 72. Review of Systems ROS Statement: Those systems with pertinent positive or pertinent negative responses have been documented in the HPI. ROS Other: All systems not noted in ROS Statement are negative. Past Medical History Past Medical History: Atrial Fibrillation, Hypertension History of Any Multi-Drug Resistant Organisms: None Reported Past Surgical History: Orthopedic Surgery Additional Past Surgical History / Comment(s): eye procedure Past Anesthesia/Blood Transfusion Reactions: No Reported Reaction Past Psychological History: No Psychological Hx Reported Smoking Status: Never smoker Past Alcohol Use History: Daily Past Drug Use History: None Reported - Past Family History Mother Family Medical History: Diabetes Mellitus Medications and Allergies Home Medications Medication Instructions Recorded Confirmed Type ALPRAZolam [Xanax] 0.25 mg PO BID PRN 06/25/20 06/25/20 History Tamsulosin HCl [Flomax] 0.4 mg PO DAILY 06/25/20 06/25/20 History atenoloL [Atenolol] 25 mg PO DAILY 06/25/20 06/25/20 History Allergies Allergy/AdvReac Type Severity Reaction Status Date / Time No Known Allergies Allergy Verified 06/25/20 20:44 Physical Exam Vitals: Vital Signs Temp Pulse Pulse Resp BP BP Pulse Ox 06/26/20 08:00 98.2 F 89 18 141/86 95 06/26/20 04:00 98.4 F 95 18 150/86 99 06/26/20 00:00 98.3 F 85 18 156/76 99 06/25/20 23:05 98.7 F 93 18 167/95 99 06/25/20 21:55 90 18 131/87 98 06/25/20 20:23 90 17 148/93 99 06/25/20 19:45 88 18 155/92 98 06/25/20 19:30 85 18 145/88 99 06/25/20 19:15 99.1 F 99 18 155/104 99 Intake and Output 06/25/20 06/26/20 06/26/20 22:59 06:59 14:59 Output Total 600 Balance -600 Output: Urine 600 Other: Voiding Method Urinal Urinal # Voids 1 Weight 83.915 kg 94.5 kg PHYSICAL EXAM: VITAL SIGNS: As above GENERAL: Sitting up in bed, no acute distress. HEENT: Conjunctivae normal. eyes normal. Mild left-sided facial droop, minimal dysarthria. NECK: No JVD. No thyroid enlargement. No LNs CARDIOVASCULAR: S1, S2,irregular.. No murmur RESPIRATION: Breath sounds diminished in the bases. No rhonchi or crackles. No bronchial breathing. ABDOMEN: Soft, nontender . No guarding. no masses palpable. No ascites, No hepatosplenomegaly.Bowel sounds heard. LEGS: No edema. no swelling PSYCHIATRY: Alert and oriented X3, mood and affect normal. NERVOUS SYSTEM: Cranial N 2-12 grossly normal. Minimal dysarthria and mild lef t-sided facial droop .Moves all 4 limbs. No focal deficits. Strength and sensation grossly intact. Skin: no lesions, no rash Joints: No active swelling. No inflammation. Lymphatic system. No LN neck axilla or groin. Results CBC & Chem 7: 06/26/20 08:02 06/25/20 20:31 Labs: Abnormal Lab Results - Last 24 Hours (Table) 06/25/20 06/25/20 06/25/20 Range/Units 19:35 19:35 19:35 Plt Count 67 L (150-450) k/uL Lymphocytes # 0.8 L (1.0-4.8) k/uL APTT 19.8 L (22.0-30.0) sec Sodium (137-145) mmol/L AST (17-59) U/L Troponin I 0.039 H* (0.000-0.034) ng/mL HDL Cholesterol (40-60) mg/dL Coronavirus (PCR) (Not Detectd) 06/25/20 06/25/20 06/26/20 Range/Units 20:31 21:29 07:54 Plt Count (150-450) k/uL Lymphocytes # (1.0-4.8) k/uL APTT (22.0-30.0) sec Sodium 132 L (137-145) mmol/L AST 72 H (17-59) U/L Troponin I (0.000-0.034) ng/mL HDL Cholesterol 78 H (40-60) mg/dL Coronavirus (PCR) Detected A (Not Detectd) 06/26/20 Range/Units 08:02 Plt Count (150-450) k/uL Lymphocytes # 0.7 L (1.0-4.8) k/uL APTT (22.0-30.0) sec Sodium (137-145) mmol/L AST (17-59) U/L Troponin I (0.000-0.034) ng/mL HDL Cholesterol (40-60) mg/dL Coronavirus (PCR) (Not Detectd) Thrombosis Risk Factor Assmnt - Choose All That Apply Any of the Below Risk Factors Present?: Yes Each Factor Represents 1 point: Obesity (BMI >25) Other Risk Factors: Yes Each Risk Factor Represents 3 Points: Age 75 years or older Thrombosis Risk Factor Assessment Total Risk Factor Score: 4 Thrombosis Risk Factor Assessment Level: Moderate Risk Assessment and Plan Assessment: 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 Continue Aspirin, Lipitor. Anticoagulation as per neurology and cardiology .Pulmonary, Neurology and vascular consults in place, recommendations pending. Neuro checks ordered, continuous telemetry monitoring. evaluated by cardiology with recommendations on appreciated. PT/OT/speech therapy consulted. Prognosis guarded given multiple complex medical issues. The impression and plan of care has been dictated as directed. : I performed a history and examination of this patient, discussed the same with the dictator. I agree with the dictator's note ,documented as a scribe. Any additional findings or plans will be noted.
--- NOTE | 2020-06-26 16:06 | US ---
EXAMINATION TYPE: US carotid duplex BILAT DATE OF EXAM: 06/26/2020 COMPARISON: CT CLINICAL HISTORY: 79-year-old male stroke. RIght ICA stenosis. TECHNIQUE: Carotid duplex ultrasound examination. Indirect Doppler criteria was utilized. FINDINGS: EXAM MEASUREMENTS: RIGHT: Peak Systolic Velocity (PSV) cm/sec ----- Right CCA: 66.9 ----- Right ICA: 113.6 ----- Right ECA: 61.1 ICA/CCA ratio: 1.7 RIGHT: End Diastole cm/sec ----- Right CCA: 14.2 ----- Right ICA: 26.1 ----- Right ECA: 8.7 LEFT: Peak Systolic Velocity (PSV) cm/sec ----- Left CCA: 61.1 ----- Left ICA: 74.8 ----- Left ECA: 60.2 ICA/CCA ratio: 1.2 LEFT: End Diastole cm/sec ----- Left CCA: 13.7 ----- Left ICA: 22.6 ----- Left ECA: 9.2 VERTEBRALS (direction of flow): Right Vertebral: Antegrade Left Vertebral: Antegrade Rhythm: Normal Moderate atherosclerotic change of the right bifurcation. IMPRESSION: Moderate atherosclerotic plaque of the right bifurcation but without any hemodynamically significant ICA stenosis on either side by Doppler criteria. Criteria for Assigning % of Stenosis / Diameter reduction (Estimation based on the indirect measurements of the internal carotid artery velocities (ICA PSV). 1. Normal (no stenosis)=ICA PSV < 125 cm/s: ratio < 2.0: ICA EDV<40 cm/s. 2. Less than 50% stenosis=ICA PSV < 125 cm/s: ratio < 2.0: ICA EDV<40 cm/s. 3. 50 to 69% stenosis=ICA PSV of 125 to 230 cm/s: ration 2.0 ? 4.0: ICA EDV 40-100 cm/s. 4. Greater than 70% stenosis to near occlusion= ICA PSV > 230 cm/s: ratio > 4.0: ICA EDV > 100 cm/s. 5. Near occlusion= ICA PSV velocities may be low or undetectable: variable ratio and ICA EDV. 6. Total occlusion=unable to detect flow.
[2020-06-26] MEDS ORDERED: LORazepam 2 MG/ML INJ IV PRN ×3 (18:47)
[2020-06-26 20:11] LABS: Hemoglobin A1C 5.1 % (4.0-6.0)
[2020-06-27] MEDS: ALPRAZolam 0.25 MG TAB PO PRN ×2 (00:31→08:25)
[2020-06-27 06:37] VITALS: TEMP 99.5
[2020-06-27] MEDS ORDERED: THIAMINE 100 MG TAB PO SCH (07:30)
[2020-06-27] MEDS: PANTOPRAZOLE 40 MG/10 ML VIAL IVP SCH (08:25)
[2020-06-27] MEDS: METOPROLOL TARTRATE 25 MG TAB PO SCH (08:25)
[2020-06-27] MEDS: ASPIRIN 81 MG PO SCH (08:25)
[2020-06-27] MEDS: ATORVASTATIN 80 MG TAB PO SCH (08:25)
[2020-06-27 08:53] VITALS: RESP 17
[2020-06-27] MEDS ORDERED: CLOPIDOGREL 75 MG TAB PO SCH (09:00)
--- NOTE | 2020-06-27 10:16 | CT ---
EXAMINATION TYPE: CT brain wo con DATE OF EXAM: 06/27/2020 HISTORY: Evaluate evolute of stroke, acute onset neuro deficit or left facial drooping on admission [address] DLP: 1123.4 mGycm. Automated Exposure Control for Dose Reduction was Utilized. TECHNIQUE: CT scan of the head is performed without contrast. COMPARISON: CT brain 2 days ago.. FINDINGS: There is no acute intracranial hemorrhage or midline shift identified. There is backgroun d diffuse ventricular and sulcal prominence consistent with diffuse cerebral atrophy greatest over th e bilateral frontal lobes redemonstrated. There is low-attenuation in the deep and periventricular w juve matter consistent with chronic small vessel ischemic change redemonstrated. Persistent vague hyp odense area right inferior frontal lobe over roughly 3 x 2 x 3 cm area axial image 35 and coronal von ge 31 is slightly more defined on current study. The globes are intact and the visualized sinuses are clear. Severe calcified plaque distal internal carotid arteries bilaterally is again seen. IMPRESSION: No acute intracranial hemorrhage or midline shift. There is moderate diffuse age-relate d cerebral atrophy and chronic small vessel ischemic change redemonstrated without significant interv al change. Evolving inferior right frontal lobe infarct in the MCA distribution once again noted.
--- NOTE | 2020-06-27 10:31 | P.PN ---
Subjective Progress Note Date: 06/27/20 Patient was seen and examined. No complaints. Feels quite better overall since admission Objective - Vital Signs Vital signs: Vital Signs Temp 99.5 F 06/27/20 04:00 Pulse 74 06/27/20 08:00 Resp 17 06/27/20 08:00 BP 135/56 06/27/20 08:00 Pulse Ox 97 06/27/20 08:00 Intake & Output 06/26/20 06/27/20 06/27/20 18:59 06:59 18:59 Intake Total 600 0 Balance 600 0 Weight 90.5 kg Intake: Oral 600 0 Other: Voiding Method Urinal Urinal # Voids 1 1 # Bowel Movements 1 1 - Exam Gen. is a well-appearing male in no acute distress. HEENT is normocephalic, some word finding difficulty but able to carry on full conversation. Heart is regular this time. Lungs are clear bilaterally. Abdomen is soft. Extremity show no clubbing, cyanosis or edema. He has trouble radial femoral and dorsalis pedis pulses bilaterally. Normal mood and affect - Labs CBC & Chem 7: 06/26/20 08:02 06/25/20 20:31 Assessment and Plan Assessment: 1. Right internal artery carotid stenosis, discordance on imaging 2. 4 cm right MCA territory nonhemorrhagic infarction 3. Left facial droop and slurring of speech 4. Chronic history of Atrial fibrillation, was not on anticoagulation 5. Positive Covid-19 pneumonia Plan: The computed tomography scan and ultrasound are both reviewed. There is significant discordance between the 2. On the ultrasound the right internal carotid artery peak systolic velocity measures 113 cm/s with a ratio of 1.7. The left internal carotid artery measured 74.8 cm/s with a ratio of 1.2. This does not agree with the computed tomography scan which showed hemodynamically significant stenosis on the right. Given the fact patient has multiple factors for possible stroke including his untreated atrial fibrillation, would recommend undergoing a catheter directed angiogram prior to intervention if needed. From my standpoint he may be discharge at this point for short-term follow-up for an angiogram. He can be sent home on aspirin, anticoagulation/plavix and statin. We will leave the decision of anticoagulation versus Plavix to other consultants. From my standpoint either 1 is acceptable
[2020-06-27] MEDS ORDERED: LOPERAMIDE 2 MG CAP PO PRN (10:47)
[2020-06-27] MEDS ORDERED: LOPERAMIDE 2 MG CAP PO STA (10:47)
--- NOTE | 2020-06-27 11:39 | P.PN ---
Subjective This is an 79-year-old gentleman with past medical history of atrial fibrillation-not on anticoagulation, hypertension, daily alcohol use presented t o the ER with complaints of left facial droop, slurred speech, that occurred yesterday around 1999 on without complete resolution. Reports symptoms occurred spontaneously while drinking out of a cup.Denies weakness or loss of sensation in upper or lower extremities. Denies lightheadedness dizziness or focal deficits. Denies cough ,congestion or fevers. Denies chest pain, palpitations or shortness of breath. Denies nausea vomiting or diarrhea. Denies swallowing difficulty. On admission maintained O2 sats in the high 90s on room air, currently requiring 2 L nasal cannula to maintain O2 sats in the 90s. T-max 99.[address] reported a 4 mm right MCA territory nonhemorrhagic infarction involving the left lateral right frontal lobe at the level of the frontal horns and third ventricle. CT angiography of the head and neck was reported as 4 cm right MCA territory nonhemorrhagic infarction. Hemodynamically significant proximal right ICA complex plaque stenosis, 75%. EKG reporting atrial fibrillation, controlled ventricular rate,Troponin 0.039 .echo reporting a normal LV function, EF 50-55%, severely dilated LA, mild to moderate mitral regurgitation, pulmonary hypertension. Patient received Lipitor and aspirin per ERs consult with neuro interventionalist. Coronavirus detected. Chest x-ray reporting cardiomegaly, no giovanni pulmonary edema, pleural spaces negative, possible multifocal bronchopneumoniano clinical presentation .Triglycerides 48, cholesterol 178, LDL 90, HDL 78. TSH 2.7. Hematology, coagulation panels unremarkable with the exception of initial platelets of 67, now 164, lymphocytes 0.8. Chemistry panel unremarkable with the exception of sodium 132 and mildly increased AST 72. 06/27/2020: Patient is resting comfortably and has no new complaints. He has minimal noted left facial droop. He denies any chest pains, pressures, shortness of breath, nausea or vomiting. Staff report he is having some diarrhea. He is positive for coronavirus. Pulmonology, neurology, cardiology, and vascular surgery notes reviewed from June 26. Today his vitals remained stable. Labs are pending for today. Patient remains on Xanax when necessary along with C1 protocol. Is on aspirin Plavix and atorvastatin for antiplatelet effect and hyperlipidemia affect. He remains on metoprolol for heart rate control at age fibrillation. Objective - Vital Signs Vital signs: Vital Signs Temp 99.5 F 06/27/20 04:00 Pulse 74 06/27/20 08:00 Resp 17 06/27/20 08:00 BP 135/56 06/27/20 08:00 Pulse Ox 97 06/27/20 08:00 Intake & Output 06/26/20 06/27/20 06/27/20 18:59 06:59 18:59 Intake Total 600 0 Output Total 1 Balance 600 -1 Weight 90.5 kg Intake: Oral 600 0 Output: Urine 1 Other: Voiding Method Urinal Urinal # Voids 1 1 # Bowel Movements 1 1 1 - Exam GENERAL: In standing in the doorway of his room., no acute distress. NECK: No JVD. No thyroid enlargement. No LNs CARDIOVASCULAR: S1, S2,irregular.. No murmur RESPIRATION: Breath sounds diminished in the bases. No rhonchi or crackles. No bronchial breathing. ABDOMEN: Soft, nontender . No guarding. no masses palpable. No ascites, No hepatosplenomegaly.Bowel sounds heard. LEGS: No edema. no swelling PSYCHIATRY: Alert and oriented X3, mood and affect normal. NERVOUS SYSTEM: Cranial N 2-12 grossly normal. Minimal dysarthria and mild left-sided facial droop .Moves all 4 limbs. No focal deficits. Strength and sensation grossly intact. Skin: no lesions, no rash Joints: No active swelling. No inflammation. Lymphatic system. No LN neck axilla or groin. - Labs CBC & Chem 7: 06/26/20 08:02 06/25/20 20:31 Assessment and Plan (1) Cerebrovascular accident (CVA) involving right middle cerebral artery territory Current Visit: Yes Status: Acute Code(s): I63.511 - CEREB INFRC D/T UNSP OCCLS OR STENOS OF RIGHT MID CEREB ART SNOMED Code(s): 458099086 (2) Carotid artery stenosis with cerebral infarction Current Visit: Yes Status: Acute Code(s): I63.239 - CEREB INFRC DUE TO UNSP OCCLS OR STENOS OF UNSP CRTD ARTERY SNOMED Code(s): 70508191 (3) COVID-19 Current Visit: Yes Status: Acute Code(s): U07.1 - COVID-19 SNOMED Code(s): 722373859 (4) EtOH dependence Current Visit: Yes Status: Acute Code(s): F10.20 - ALCOHOL DEPENDENCE, UNCOMPLICATED SNOMED Code(s): 25708268 (5) A-fib Current Visit: Yes Status: Acute Code(s): I48.91 - UNSPECIFIED ATRIAL FIBRILLATION SNOMED Code(s): 00806547 Plan: I will await further recommendations from cardiology regarding his atrial fibrillation and anticoagulation. Neurology notes from yesterday reviewed, however the neurologist will be available today. Pulmonology notes reviewed. Most likely the diarrhea is having related to medications or the COVID-19 infection. We'll repeat labs in a.m. Reevaluated next 24 hours most likely for discharge at that time.
--- NOTE | 2020-06-27 11:52 | P.PN ---
Subjective Progress Note Date: 06/27/20 79-year-old male patient CVA with the patient developed sudden onset left facial droop and slurred speech and he presented to the emergency department accordingly. His symptoms started yesterday at around 8 PM. He did have some improvement but not completely back to his baseline. Denied having any other weaknesses. He does have history of atrial fibrillation. He has also history of hypertension. CT of the head showed a 3 cm right MCA distribution nonhemorrhagic infarction. CT angiogram of the brain showed a 4 cm right MCA distribution nonhemorrhagic infarct. There was also a hemodynamically significant proximal right ICA complex stenosis. EKG was showing atrial fibrillation. His platelet count was 67,000 and the repeat was 164. Troponin was at 0.039. He was also positive COVID-19 by PCR. The patient is currently on 2 L of oxygen. On room air oxygen and the pulse ox was 95%. Chest x-ray showed cardiomegaly. He does not have any respiratory symptoms. He does have lymphopenia and his blood work. Inflammatory markers have not been checked. On 06/27/2020, the patient is still having some difficulties with speech and numbness in his face. No new onset motor weakness. No worsening shortness of breath. The patient has a COVID-19 related infection also. His COVID-19 was positive by PCR. He is on room air oxygen. No fever. No chills. No chest pain. No other new complaints otherwise for now. He has no cough. Pulse ox is 97% on room air oxygen. Objective - Vital Signs Vital signs: Vital Signs Temp 99.5 F 06/27/20 04:00 Pulse 74 06/27/20 08:00 Resp 17 06/27/20 08:00 BP 135/56 06/27/20 08:00 Pulse Ox 97 06/27/20 08:00 Intake & Output 06/26/20 06/27/20 06/27/20 18:59 06:59 18:59 Intake Total 600 0 Output Total 1 Balance 600 -1 Weight 90.5 kg Intake: Oral 600 0 Output: Urine 1 Other: Voiding Method Urinal Urinal # Voids 1 1 # Bowel Movements 1 1 1 - Exam CONSTITUTIONAL: No apparent distress. HEENT: Head is normocephalic. Pupils are equal, round. Sclerae anicteric. Mucous membranes of the mouth are moist. No JVD. No carotid bruit. CHEST EXAMINATION: Lungs are clear to auscultation. No chest wall tenderness is noted on palpation or with deep breathing. HEART EXAMINATION: Irregular rate and rhythm. S1, S2 heard. No murmurs, gallops or rub. ABDOMEN: Soft, nontender. Positive bowel sounds. EXTREMITIES: 2+ peripheral pulses, no lower extremity edema and no calf t enderness. SKIN: NEUROLOGIC EXAMINATION: Patient is awake, alert and oriented x3. - Labs CBC & Chem 7: 06/26/20 08:02 06/25/20 20:31 Assessment and Plan Plan: 1 acute CVA involving the right MCA distribution. The patient has a critical stenosis of the right ICA. Patient presenting with left facial weakness and slurred speech last aphasia. 2 right carotid artery stenosis 3 Chronic atrial fibrillation 4 COVID 19 positive, pneumonia is doubtful 5 thrombocytopenia, improving 6 lymphopenia related to COVID-19. 7 hypertension 8 BPH Plan Management of CVA per neurology echocardiogram was completed yesterday and it showed normal ejection fraction of 50-55% and [id number] mitral regurgitation. The patient remains in atrial fibrillation. No anticoagulants for now the patient is on a combination of aspirin and Plavix. Carotid Doppler done and it showed moderate atherosclerotic plaque in the right bifurcation without any significant hemodynamically significant ICA stenosis. Monitor symptoms for COVID-19. Obviously patient is infected and I do not see any systemic symptoms or any changes to support diagnosis of pneumonia. Chest x-ray was reviewed safety shows cardiomegaly. The patient is on room air oxygen. We'll continue As needed
[2020-06-27 12:33] LABS: Basophils % (A) 1 %; Eosinophils % (A) 1 %; HGB 14.7 gm/dL (13.0-17.5); Lymphocytes # (A) 0.7 k/uL (1.0-4.8); Lymphocytes % (A) 10 %; MCHC 34.3 g/dL (31.0-37.0); MCV 93.4 fL (80.0-100.0); Mean Platelet Volume 7.9; Monocytes # (A) 0.7 k/uL (0-1.0); Monocytes % (A) 11 %; Neutrophils # (A) 5.1 k/uL (1.3-7.7); Neutrophils % (A) 76 %; Platelet Count 156 k/uL (150-450); RDW 12.9 % (11.5-15.5); WBC 6.7 k/uL (3.8-10.6)
[2020-06-27 12:50] LABS: Calcium 8.7 mg/dL (8.4-10.2); Magnesium 1.9 mg/dL (1.6-2.3); Potassium 3.9 mmol/L (3.5-5.1)
[2020-06-27 13:27] VITALS: BP 153/81; PULSE 100
--- NOTE | 2020-06-27 13:27 | P.PN ---
Subjective Progress Note Date: 06/27/20 This is a pleasant 79-year-old male past medical history significant for atrial fibrillation (diagnosed at age 21, never been on anticoagulation) and hypertension. 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 We have been asked to see in consultation for atrial fibrillation. Patient is seen and examined at bedside in no acute distress. States he noticed his speech was slurred and had a left sided facial droop and presented to the emergency department. CT brain revealed right MCA territory nonhemorrhagic infarction. He was found to be COVID positive. CT angiogram of the neck showed evidence of hemodynamically significant proximal RCA stenosis but was not seen confirmed on ultrasound imaging. Vascular surgery was consulted. They are planning catheter directed angiogram as an outpatient. Antiocagulation is currently on hold due to neurology's recommendations. The patient currently denies any complaints of chest discomfort, dizziness, palpitations or shortness of breath. He does not currently appear to be in any acute distress. Echocardiogram with Doppler study showed a low normal systolic function with ejection fraction of 50-55% with mild to moderate MR, mild TR and mild pulmonary hypertension. Objective - Vital Signs Vital signs: Vital Signs Temp 99.5 F 06/27/20 04:00 Pulse 74 06/27/20 08:00 Resp 17 06/27/20 08:00 BP 135/56 06/27/20 08:00 Pulse Ox 97 06/27/20 08:00 Intake & Output 06/26/20 06/27/20 06/27/20 18:59 06:59 18:59 Intake Total 600 0 Output Total 1 Balance 600 -1 Weight 90.5 kg Intake: Oral 600 0 Output: Urine 1 Other: Voiding Method Urinal Urinal # Voids 1 1 # Bowel Movements 1 1 1 - Exam Thorough physical examination was deferred secondary to underlying COVID-19 infection. - Labs CBC & Chem 7: 06/27/20 11:58 06/27/20 11:58 Labs: Abnormal Lab Results - Last 24 Hours (Table) 06/27/20 Range/Units 11:58 Lymphocytes # 0.7 L (1.0-4.8) k/uL Assessment and Plan Assessment: Atrial fibrillation- most likely chronic persistent -[id number] score 4 (age, hypertension, and stroke) Hypertension Covid-19 Mildly elevated troponin- most likely related to covid-19 infection CVA- right MCA nonhemorrhagic infarction Right carotid stenosis Plan: From Cardiology's perspective we will add anticoagulation when okay by neurology. Medications were reviewed and will continue the same at this time. We will continue to follow the patient and provide further recommendations accordingly. PHYSICAL SCIENCES INSTRUCTOR note has been reviewed, I agree with a documented findings and plan of care. Patient was seen and examined.
[2020-06-27] MEDS ORDERED: APIXABAN 5 MG TAB PO SCH (13:45)
--- NOTE | 2020-06-27 14:15 | P.PN ---
Subjective Progress Note Date: 06/27/20 The patient was seen at bedside and he stated that he is doing about the same as yesterday. Denies any worsening of his neurological condition. CT of the head is reported as no acute intracranial hemorrhage or midline shift. There is moderate diffuse age-related cerebral atrophy and chronic small vessel ischemic changes redemonstrated without significant interval change. Evolving inferior right frontal lobe infarct in the MCA distribution once again noted. Carotid duplex is reported as moderate atherosclerotic plaque of the right bifurcation but without any hemodynamically significant internal carotid artery stenosis on either side by Doppler criteria Objective - Vital Signs Vital signs: Vital Signs Temp 99.5 F 06/27/20 04:00 Pulse 74 06/27/20 08:00 Resp 17 06/27/20 08:00 BP 135/56 06/27/20 08:00 Pulse Ox 97 06/27/20 08:00 Intake & Output 06/26/20 06/27/20 06/27/20 18:59 06:59 18:59 Intake Total 600 0 Output Total 1 Balance 600 -1 Weight 90.5 kg Intake: Oral 600 0 Output: Urine 1 Other: Voiding Method Urinal Urinal # Voids 1 1 # Bowel Movements 1 1 1 - Exam GENERAL: The patient is lying in bed and is not in acute distress. CHEST: Right carotid bruit. NEUROLOGICAL: Higher mental function: The patient is awake, alert, oriented to self, place and time. Patient is following commands. No aphasia and no neglect. Cranial nerves: The pupils are round, equal and reactive to light and accom modation. Visual cutler are full to confrontation throughout. Extraocular movement is intact no nystagmus is noted. Facial sensation is normal to touch throughout. The facial strength is mild left facial weakness. Hearing is mildly decreased bilaterally to hand rub. Tongue is midline and moved [id number] without any difficulty. Minimal dysarthria at few instances is noted. Shoulder shrug is normal bilaterally. Motor: Gait is deferred. The strength is 5 over 5 throughout. Normal tone and bulk. Cerebellum: Normal finger to nose heel to aguirre bilaterally. Sensation: Sensation is normal to touch throughout. Reflexes (right/left): 2+ throughout Plantars are downgoing bilaterally. 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 Etiology is Embolic (Artery to artery from symptomatic right ICA stenois. Another possibility is cardioembolic (since has atrial fibrillation). Symtomatic RIght Internal carotid artery stenosis (75%) per CTA but per carotid duplex moderate stenosis Positive COVID-19 pneumonia Thrombocytopenia--improving Chronic history Atrial fibrillation (refused to be on anticoagulation in the past) Hypertension Plan: * Repeat CT of the head today is reported as no acute intracranial hemorrhage or midline shift. There is moderate diffuse age-related cerebral atrophy and chronic small vessel ischemic changes redemonstrated without significant interval change. Evolving inferior right frontal lobe infarct in the MCA distribution once again noted. * Carotid duplex is reported as moderate atherosclerotic plaque of the right bifurcation but without any hemodynamically significant internal carotid artery stenosis on either side by Doppler criteria * I consulted vascular surgeon team regarding this symptom carotid stenosis. And they stated that they stated no surgical intervention as inpatient and he will follow-up as outpatient. * Currently on aspirin 81 mg Plavix 75 mg for now. Spoke with cyber legal advisor and he was more inclinded of starting the patient on anticoagulation (Eliquis) prior to discharge especially with Atrial fibrillation. It was felt the benefit outweight the risk and in that sense I agree with the plan. Will stop Plavix and ASA due to increase risk of bleed. * Continue Lipitor 80 mg daily. * 2-D echo: Moderate ventricular ventricle hypertrophy. Left atrium is severely dilated. * On every 4 hours neuro checks and continous cardiac monitoring. * TSH: 2.710 (normal). Hemoglobin A1c 5.1 (normal) * PT, OT and TECHNICAL AID are consulted. * Lipid panel: T, cholestrol 178, LDL 90 and HDL is 78. LDL goal in stroke is <70. * Cardiology is on board. Upon discharge the patient needs to follow-up with neurologist within 1-2 week. From a neurology perspective there is no further workup needed at this time. The plan is discussed with the patient's nurse Ranulfo Benton MD Neuro-Hospitalist Time with Patient: Less than 30
--- NOTE | 2020-06-27 14:58 | P.DS ---
Providers Date of admission: 06/25/20 21:08 Expected date of discharge: 06/27/20 Attending physician: John Mccracken Consults: 06/25/20 21:13 Consult Physician Urgent Consulting Provider: David Benton Consult Reason/Comments: CVA Do you want consulting provider notified?: Yes 06/25/20 21:23 Consult Physician Urgent Consulting Provider: [facility] Consult Reason/Comments: A. fib Do you want consulting provider notified?: Yes 06/26/20 05:01 Consult Physician Urgent Consulting Provider: Ranulfo Benton Consult Reason/Comments: CVA Do you want consulting provider notified?: Yes, Notify in am 06/26/20 09:33 Consult Physician Urgent Consulting Provider: Harinder Bolanos Consult Reason/Comments: Symptomatic right ICA stenosis Do you want consulting provider notified?: Yes Primary care physician: Tez Conley - Discharge Diagnosis(es) (1) Cerebrovascular accident (CVA) involving right middle cerebral artery territory Current Visit: Yes Status: Acute (2) Carotid artery stenosis with cerebral infarction Current Visit: Yes Status: Acute (3) COVID-19 Current Visit: Yes Status: Acute (4) EtOH dependence Current Visit: Yes Status: Acute (5) A-fib Current Visit: Yes Status: Acute Hospital Course: This is an 79-year-old gentleman with past medical history of atrial fibrillation-not on anticoagulation, hypertension, daily alcohol use presented to the ER with complaints of left facial droop, slurred speech, that occurred yesterday around 1999 on without complete resolution. Reports symptoms occurred spontaneously while drinking out of a cup.Denies weakness or loss of sensation in upper or lower extremities. Denies lightheadedness dizziness or focal deficits. Denies cough ,congestion or fevers. Denies chest pain, palpitations or shortness of breath. Denies nausea vomiting or diarrhea. Denies swallowing difficulty. On admission maintained O2 sats in the high 90s on room air, currently requiring 2 L nasal cannula to maintain O2 sats in the 90s. T-max 99.[address] reported a 4 mm right MCA territory nonhemorrhagic infarction involving the left lateral right frontal lobe at the level of the frontal horns and third ventricle. CT angiography of the head and neck was reported as 4 cm right MCA territory nonhemorrhagic infarction. Hemodynamically significant proximal right ICA complex plaque stenosis, 75%. EKG reporting atrial fibrillation, controlled ventricular rate,Troponin 0.039 .echo reporting a normal LV function, EF 50-55%, severely dilated LA, mild to moderate mitral regurgitation, pulmonary hypertension. Patient received Lipitor and aspirin per ERs consult with neuro interventionalist. Coronavirus detected. Chest x-ray reporting cardiomegaly, no giovanni pulmonary edema, pleural spaces negative, possible multifocal bronchopneumoniano clinical presentation .Triglycerides 48, cholesterol 178, LDL 90, HDL 78. TSH 2.7. Hematology, coagulation panels unremarkable with the exception of initial platelets of 67, now 164, lymphocytes 0.8. Chemistry panel unremarkable with the exception of sodium 132 and mildly increased AST 72. 06/27/2020: Patient is resting comfortably and has no new complaints. He has minimal noted left facial droop. He denies any chest pains, pressures, shortness of breath, nausea or vomiting. Staff report he is having some diarrhea. He is positive for coronavirus. Pulmonology, neurology, cardiology, and vascular surgery notes reviewed from June 26. Today his vitals remained stable. Labs are pending for today. Patient remains on Xanax when necessary along with C1 protocol. Is on aspirin Plavix and atorvastatin for antiplatelet effect and hyperlipidemia affect. He remains on metoprolol for heart rate control at age fibrillation. Addendum: patient was seen again by cardiology, who placed a patient on Eliquis. Neurology is in agreement and discontinued aspirin and Plavix. RX also issued for metoprolol for rate control of a fib and atorvastatin to decrease likelihood of recurrent CVA in light of carotid stenosis. Consultants cleared patient for D/C today. Patient will be discharged with plan cardiology, vascular surgery, neurology and PCP follow ups. He will self isolate due to COVID +, but is asymptomatic at this time. Patient Condition at Discharge: Serious Plan - Discharge Summary Discharge Rx Participant: Yes New Discharge Prescriptions: New Apixaban [Eliquis] 5 mg PO BID 30 Days #60 tab Metoprolol Tartrate [Lopressor] 25 mg PO BID #60 tab Pantoprazole [Protonix] 40 mg PO AC-BRKFST #30 tablet.dr Lyon [Lipitor] 80 mg PO DAILY #30 tab Continue ALPRAZolam [Xanax] 0.25 mg PO BID PRN PRN Reason: Anxiety atenoloL [Atenolol] 25 mg PO DAILY Tamsulosin HCl [Flomax] 0.4 mg PO DAILY Discharge Medication List ALPRAZolam [Xanax] 0.25 mg PO BID PRN 06/25/20 [History] Tamsulosin HCl [Flomax] 0.4 mg PO DAILY 06/25/20 [History] atenoloL [Atenolol] 25 mg PO DAILY 06/25/20 [History] Apixaban [Eliquis] 5 mg PO BID 30 Days #60 tab 06/27/20 [Rx] Atorvastatin [Lipitor] 80 mg PO DAILY #30 tab 06/27/20 [Rx] Metoprolol Tartrate [Lopressor] 25 mg PO BID #60 tab 06/27/20 [Rx] Pantoprazole [Protonix] 40 mg PO AC-NADERFSSheri #30 tablet. 06/27/20 [Rx] Follow up Appointment(s)/Referral(s): Janet Tirado MD [STAFF PHYSICIAN] - 3 Weeks Tez Conley Jr, DO [Primary Care Provider] - 1-2 days [facility], [NON-STAFF] - Discharge Disposition: HOME WITH HOME HEALTH SERVICES
[2020-06-28] MEDS ORDERED: PANTOPRAZOLE 40 MG TABLET PO SCH (07:30)
== END 2020-06-27 17:16 | disposition home health service (06) | DRG 64 ==
LOC: EC 19:12 → 3SCARD 21:08
PROVIDERS: ADMIT Family Medicine; ATTEND Family Medicine
DX: I63.131 Cerebral infarction due to embolism of right carotid artery (principal); U07.1 COVID-19; J12.82 Pneumonia due to coronavirus disease 2019; I48.19 Other persistent atrial fibrillation; D69.6 Thrombocytopenia, unspecified; I27.20 Pulmonary hypertension, unspecified; R47.01 Aphasia; E78.5 Hyperlipidemia, unspecified; D72.810 Lymphocytopenia; F10.20 Alcohol dependence, uncomplicated; R29.810 Facial weakness; R47.81 Slurred speech; R29.704 NIHSS score 4; I10 Essential (primary) hypertension; I08.3 Combined rheumatic disorders of mitral, aortic and tricuspid valves; N40.0 Benign prostatic hyperplasia without lower urinary tract symptoms; R77.8 Other specified abnormalities of plasma proteins; Z79.899 Other long term (current) drug therapy; Z83.3 Family history of diabetes mellitus
CPT/HCPCS: 36415; 70450; 70496; 70498; 71046; 80048; 80053; 80061; 83036; 83735; 84443; 84484; 85025; 85610; 85730; 87635; 93005; 93306; 93880; 99285

== ENCOUNTER 2020-07-15 11:38 | Day surgery (SDC) | payer MEDICARE, BC ==
[2020-07-10 13:44] VITALS: BMI 29.8
[~2020-07-15 11:38] MED LIST: SODIUM CHLORIDE 0.9% 1,000 ML in EMPTY BAG 1 BAG IV ONE
[2020-07-15 12:11] VITALS: RESP 18; TEMP 98
[2020-07-15] MEDS ORDERED: LIDOCAINE 1% INJ 10MG/ML (20 ML MDV) ONE (13:03)
[2020-07-15] MEDS ORDERED: fentaNYL (PF) 50 MCG/ML 2 ML AMP IVP ONE (13:18)
[2020-07-15] MEDS ORDERED: MIDAZOLAM 2 MG/2 ML VIAL IVP ONE (13:18)
[2020-07-15] MEDS ORDERED: fentaNYL (PF) 50 MCG/ML 2 ML AMP ONE (13:20)
[2020-07-15] MEDS ORDERED: LIDOCAINE 1% INJ 10MG/ML (20 ML MDV) SQ ONE (13:20)
[2020-07-15] MEDS ORDERED: IOPAMIDOL-250 100ML BTL IV ONE (13:35)
--- NOTE | 2020-07-15 13:52 | P.OP ---
Date of Procedure: 07/15/20 Description of Procedure: Preoperative diagnosis: Right MCA distribution infarct, imaging discordance, high-grade stenosis on computed tomography scan, no stenosis on ultrasound, H if ablation Postoperative diagnosis: Same, partially bovine type I arch, no significant carotid stenosis less than 50% Procedure: [#1 ultrasound-guided right common femoral artery access #2 aortic arch angiogram #3 selective third order right carotid angiogram #4 moderate conscious sedation time 17 minutes] Surgeon: Kathia Serrato D.O. EBL: Less than 10 mL[] IV fluids: [See records] Urine output: [Not measured] Drains: [None] Complications: [None immediately apparent] Condition: [Stable to recovery] Operative indication and findings: [Patient is an 79-year-old male who recently presented to the hospital with findings of left upper extremity weakness and and facial droop. On imaging is found to have an area of infarct of his right MCA. On initial computed tomography scan did show greater than 70% stenosis. A subsequent ultrasound was performed revealing no evidence of flow-limiting stenosis. He also was found to have age of fibrillation and be recommended to undergo anticoagulation but she had not been taking. The plan was for a carotid angiogram to definitively diagnose the degree of stenosis. Risks and benefits were discussed. He seemingly understood and was willing to proceed as such.] Procedure in detail: [The patient was taken to the special suite and placed in supine position. Bilateral groins are prepped and draped in usual sterile fashion. A preprocedure timeout was performed, all parties were in agreement. The ultrasound was utilized in the right common femoral artery was identified. The skin overlying was anesthetized with 1% lidocaine plain. A multipurpose needle was used to cannulate the artery and Seldinger technique was used to place a 5-Occitan sheath. Catheters and wires were used to place a pigtail catheter in the ascending aorta. An angiogram was taken. The right innominate and subsequent right carotid artery was selected. An angiogram was performed. The wire was then replaced the catheter was removed. The sheath was removed and pressure was held until hemostasis was adequate. The aorta is widely patent normal in course and caliber. There is a type I arch with a partially bovine left common carotid artery coming off of the innominate artery the innominate and subclavian on the right appear patent without evidence of significant disease. The right common carotid artery is patent without significant disease. The right external carotid artery is patent without significant disease. The right internal carotid artery is patent with minimal calcific disease, easily less than 50% stenosis on multiple angles. There is good flow up into the MCA. Visualized portions of the left carotid system are patent without significant disease. Visualized portions of the left subclavian artery are patent without significant disease.] Plan - Discharge Summary Discharge Rx Participant: Yes New Discharge Prescriptions: No Action ALPRAZolam [Xanax] 0.25 mg PO BID PRN PRN Reason: Anxiety Apixaban [Eliquis] 5 mg PO BID 30 Days #60 tab Metoprolol Tartrate [Lopressor] 25 mg PO BID #60 tab Pantoprazole [Protonix] 40 mg PO AC-BRKFST #30 tablet. atenoloL [Atenolol] 25 mg PO DAILY Tamsulosin HCl [Flomax] 0.4 mg PO DAILY Atorvastatin [Lipitor] 80 mg PO DAILY #30 tab Discharge Medication List ALPRAZolam [Xanax] 0.25 mg PO BID PRN 06/25/20 [History] Tamsulosin HCl [Flomax] 0.4 mg PO DAILY 06/25/20 [History] atenoloL [Atenolol] 25 mg PO DAILY 06/25/20 [History] Apixaban [Eliquis] 5 mg PO BID 30 Days #60 tab 06/27/20 [Rx] Atorvastatin [Lipitor] 80 mg PO DAILY #30 tab 06/27/20 [Rx] Metoprolol Tartrate [Lopressor] 25 mg PO BID #60 tab 06/27/20 [Rx] Pantoprazole [Protonix] 40 mg PO AC-BRKFST #30 tablet. 06/27/20 [Rx]
[2020-07-15 18:52] VITALS: BP 128/73; PULSE 76
--- NOTE | 2020-07-16 06:53 | IR ---
EXAMINATION TYPE: IR angio carotid cereb BILAT DATE OF EXAM: 07/15/2020 CLINICAL HISTORY: Carotid stenosis TECHNIQUE: Fluoroscopy. COMPARISON: Carotid ultrasound June 26, 2020 CTA neck June 25, 2020. FINDINGS: Fluoroscopic guidance was provided during bilateral carotid angioplasty procedure performe d by Dr. Serrato. A total of 174 seconds of fluoroscopic time was utilized during the procedure and 38 spot images was acquired. Please refer to procedure note for further details as I was not present or performed procedure. IMPRESSION: As Above.
== END 2020-07-15 19:05 | disposition home or self-care (01) ==
LOC: CATHCVL 11:38
PROVIDERS: ATTEND Surgery
DX: I65.29 Occlusion and stenosis of unspecified carotid artery (principal); R94.8 Abnormal results of function studies of other organs and systems; Z86.16 Personal history of COVID-19; I48.20 Chronic atrial fibrillation, unspecified; Z79.01 Long term (current) use of anticoagulants; Z79.899 Other long term (current) drug therapy
CPT/HCPCS: 36222; C1769 ×4; C1894; J2250; J2001; J3010; Q9966